=== PATIENT | female | born 1970 | race Caucasian/White ===

== ENCOUNTER 2018-02-04 20:02 | Emergency (ER) | payer MEDICAID, SELFPAY ==
[2018-02-04] VITALS (9 sets, daily range): BP systolic 101–135; BP diastolic 64–80; PULSE 88–100; RESP 19–24; TEMP 36.8–39.3; O2SAT 83–99; BMI 54.4
--- NOTE | 2018-02-04 20:40 | EKG12_ITS ---
Test Reason : ABDOMINAL PAIN Blood Pressure : / mmHG Vent. Rate : 096 BPM Atrial Rate : 096 BPM P-R Int : 124 ms QRS Dur : 082 ms QT Int : 352 ms P-R-T Axes : 050 040 097 degrees QTc Int : 444 ms Normal sinus rhythm Possible Left atrial enlargement Cannot rule out Anterior infarct , age undetermined Abnormal ECG Confirmed by MARKOS MINA, HUGO ([id number]), editor producer GISSELLE RIGGINS ([id number]) on 02/07/2018 1:10:20 PM Referred By: JOSEFA Confirmed By:HUGO BURROWS MD
[2018-02-04 20:53] LABS: Mucous, Urine 0 SEEN /hpf (<or=2+); Red Blood Cells-Urine 0 SEEN /hpf (0-5)
[2018-02-04 20:56] LABS: Basophil# 0.01 X10^3/uL; Basophil% 0.1 % (0-1); Eosinophil# 0.02 X10^3/uL; Eosinophils% 0.2 % (0-5); Hemoglobin 11.3 g/dl (12.0-15.0); Mean Corp Hgb Conc 34.2 g/gl (32-36); Mean Corpuscular Hgb 31.8 pg (27.0-32.0); Mean Platelet Vol. 10.4 fl (6.2-12.0); Monocyte# 0.99 X10^3/uL; Monocyte% 8.5 % (0-10); Neutrophil # 9.95 X10^3/uL (2.7-7.7); Neutrophil % 84.9 % (47-70); Platelet Count 184 K/mm3 (150-450); RBC Distribution Width CV 14.3 % (11.6-14.6); RBC Distribution Width SD 46.8 fl (35.1-43.9); Red Blood Count 3.55 M/mm3 (4.2-5.4); White Blood Count 11.7 K/mm3 (4.4-11.0)
[2018-02-04] MEDS: Acetaminophen 500 MG Tablet 1000 MG PO (20:56)
[2018-02-04 20:59] LABS: POSITIVE COUNT NO; POSITIVE DIFFERENTIAL NO; POSITIVE MORPHOLOGY NO
[2018-02-04 21:01] LABS: Color, Urine Yellow (Yellow); Glucose, Dipstick Normal (Normal); Ketone-Dipstick Negative (Negative); Leukocyte Esterase-Dipstick 25 /ul (Negative); Nitrite-Dipstick Negative (Negative); Occult Blood-Urine 250 /ul (Negative); Protein-Dipstick 30 mg/dl (Negative); Specific Gravity, Urine 1.005 (1.002-1.030); Urine Bilirubin Dipstick Negative (Negative); Urine Clarity Clear (Clear); Urine Urobilinogen 1 mg/dl (Normal)
[2018-02-04 21:08] LABS: ALB/GLOB Ratio 0.7 RATIO (0.9-2.4); AST(SGOT) 20 U/L (15-37); Alanine Aminotransfer ALT/SGPT 18 U/L (13-56); Albumin, Serum 2.5 g/dL (3.2-5.0); Alkaline Phosphatase 74 U/L (45-117); Anion Gap 8 (5-15); BUN 5 mg/dL (7-18); BUN/Creat Ratio 5.9 RATIO (10-20); Calcium,Total 7.6 mg/dL (8.5-10.1); Chloride 106 mmol/L (98-107); Creatinine, Serum 0.85 mg/dL (0.55-1.02); EST Glomerular Filtration Rate 77 mL/min (>60); Est Glom Filt Rate - Afr Amer 93 mL/min (>60); Estimated Creatinine Clearance 65.41 ml/min; Globulin 3.6 g/dL (2.2-4.2); Glucose 115 mg/dL (74-106); Potassium 3.4 mmol/L (3.5-5.1); Protein, Total 6.1 g/dL (6.4-8.2); Sodium Level 140 mmol/L (136-145)
[2018-02-04 21:09] LABS: International Normalized Ratio 1.3; Prothrombin Time (Protime)PT. 15.8 SECONDS (11.7-14.9)
[2018-02-04 21:10] LABS: Partial Thromboplast Time 44.5 Seconds (24.1-36.2)
--- NOTE | 2018-02-04 21:11 | ED.VISSUMM ---
- ER Visit Summary Date of Service: 02/04/18 Chief Complaint: Abdominal pain History of Present Illness: The patient is a 47 F who presents with abdominal pain nausea and vomiting fever. Apparently she had a nephrectomy 5 days ago, at an outside institution, she apparently developed an infection went to a outlying affiliated hospital earlier today and was found to be septic they wanted to transfer her back to the hospital however she left AGAINST MEDICAL ADVICE. She is complaining of weakness fever abdominal pain. Apparently she also had a pneumonia and she was hypoxic in our emergency department. Physical Examination: Patient does appear ill, she has dry mucous membranes. She does not appear toxic She has a regular rate Clear lungs bilaterally, no obvious respiratory distress Abdomen is soft with diffuse tenderness without any guarding or rebound, the incision is clean dry and intact. There is no CVA tenderness. She has normal color without pallor. She is alert and oriented Emergency Department Course and Treatment: Antibiotics were not given initially because I wanted to wait for the from the other facility, I did not know if she already had antibiotics. Eventually vancomycin and Zosyn were given. I tried to talk to the patient about her being admitted to [facility], she is adamant about not being admitted there she says she would rather go home again and signed out AGAINST MEDICAL ADVICE. At that time I compromised and told her that we can try another hospital she was agreeable. [facility] was kind enough to admit her. I did discuss at length the fact that this is not ideal and her surgeon is not there if there is any complication he would not be her surgeon that covers it. I stressed that I do not recommend this, she is insistent on not going back to [facility] but she does agree to [facility]. I did tell her I am worried that there could be an adverse event but again she stuck with her initial choice. Her workup here was remarkable for a pneumonia, her vitals have improved, now her temperature is 98.3, she is low 90s on 2 L nasal cannula, her heart rate is 88. She does not appear toxic. She is adequately hydrated per sepsis protocol. Disposition: Transfer to another hospital Impression: Status post nephrectomy Sepsis Health care associated pneumonia Critical care time 35 minutes This note was generated with [employer] dictation software. It may contain incorrect words, spelling, and punctuation that were not noted in review of the chart prior to signing ED Disposition - Plan for ED Patient: Chief Complaint: Abd Pain Referrals: Sander Lopes DO [Primary Care Provider] -
[2018-02-04 21:12] LABS: Lactic Acid 1.9 mmol/L (0.4-2.0)
[2018-02-04 21:17] LABS: Squamous Epithelial Cells - UA 0-5 SEEN /hpf (5-10); White Blood Cells 0-5 SEEN /hpf (0-5)
[2018-02-04 21:18] LABS: Bacteria RARE /hpf (None Seen)
[2018-02-04] MEDS: LORazepam 2 MG/ML Syringe 0.5 MG IV (21:21)
[2018-02-04] MEDS: HYDROmorphone 0.5 MG/0.5 ML SYRINGE IV (21:22)
[2018-02-04] MEDS: 0.9% Normal Saline 1,000 ML IV.SOLN. 2000 ML IV (21:22)
--- NOTE | 2018-02-04 22:14 | ED.RN ---
PATIENT HAS VOIDED A TOTAL OF FOUR TIMES ON THE BEDPAN.
--- NOTE | 2018-02-04 22:55 | ED.RN ---
PATIENT REQUESTED ANOTHER BREATHING TREATMENT. THIS NURSE ASKED THE DOCTOR AND HE GAVE ME A VERBAL ORDER FOR [place]. ORDER PUT IN BY THIS NURSE AND RESPIRATORY CALLED.
[2018-02-04] MEDS: Ipratropium/Albuterol Sulfate 3 ML AMPUL.NEB INHALATION (23:02)
[2018-02-04] MEDS: HYDROmorphone 1 MG/ML Syringe IV (23:37)
--- NOTE | 2018-02-04 23:38 | NURSING ---
ACCEPTED AT [place] [id number] REPORT
--- NOTE | 2018-02-05 00:23 | NURSING ---
REPORT GIVEN TO [facility] AND [facility] PRIOR TO DISCHARGE. BOYFRIEND WENT WITH THE [facility].
== END 2018-02-05 00:24 | disposition short-term general hospital (02) ==
PROVIDERS: Emergency Provider Emergency Medicine; Family Provider Family Medicine; PCP Family Medicine
DX: A41.9 Sepsis, unspecified organism (principal); Z90.5 Acquired absence of kidney; J18.9 Pneumonia, unspecified organism; N39.0 Urinary tract infection, site not specified; F43.10 Post-traumatic stress disorder, unspecified; F41.0 Panic disorder [episodic paroxysmal anxiety]; Z87.442 Personal history of urinary calculi; Z79.899 Other long term (current) drug therapy
CPT/HCPCS: 71045; 80053; 81001; 83605; 85025; 85610; 85730; 87040; 87086; 93005; 94640; 96361; 96365; 96368; 96374; 96375; 96376; 99285; J7030; J7040; J7050; A4216